=== PATIENT | male | born 1980 | race Caucasian/White ===

== ENCOUNTER 2020-04-13 21:16 | Emergency (ER) | payer BC ==
[~2020-04-13] VITALS: Ht 182.9 cm; Wt 120.2 kg
--- NOTE | 2020-04-13 21:32 | NUR ---
TAMIKO CAME TO ER BED 1 BIB RA FROM HOME C/O "HEART BEATING REALLY FAST". PATIENT STATES THAT HE DID SOME LIGHT EXERCISE LONG BEFORE HIS PALPITATIONS OCCURRED. PATIENT ALSO STATES THAT HE HAD A SMALL PIECE OF MARIJUANA COOKIES. PATIENT CURRENTLY DOES NOT HAVE ANY PAIN OR ANY COMPLAINTS. AAOX4. NO SOB. BREATHING EVENLY AND UNLABORED ON ROOM AIR. CONNECTED TO MONITOR.
--- NOTE | 2020-04-13 21:34 | NUR ---
TIAGO HEARD AT BEDSIDE.
--- NOTE | 2020-04-13 21:49 | NUR ---
BLOOD DRAWN, SENT TO LAB.
[2020-04-13 21:53] LABS: BASOPHILS % (AUTO) 0.5 % (0.0-2.0); HEMATOCRIT 39 % (39-51); HEMOGLOBIN 13.5 g/dL (13.5-17.5); LYMPHOCYTES % (AUTO) 20.7 % (20.0-44.0); MEAN CORPUSCULAR HGB CONC 34 g/dl (31.0-36.0); MEAN CORPUSCULAR VOLUME 88 fL (80-96); MONOCYTES # (AUTO) 0.7 /CMM (0.1-1.30); NEUTROPHILS # (AUTO) 6.8 /CMM (1.8-8.9); NEUTROPHILS % (AUTO) 69.8 % (43.0-81.0); PLATELET COUNT (AUTO) 310 /CMM (150-450); RED BLOOD CELL COUNT(AUTO) 4.47 MIL/uL (4.5-6.0); WHITE BLOOD COUNT (AUTO) 9.8 K/uL (4.3-11.0)
[2020-04-13 22:02] LABS: CALCIUM, SERUM 9.1 mg/dL (8.5-10.1); CARBON DIOXIDE 28 mmol/L (21-32); CHLORIDE 97 mmol/L (98-107); CREATININE 0.9 mg/dL (0.6-1.3); GLUCOSE 110 mg/dL (74-106); SODIUM SERUM 133 mmol/L (136-145); UREA NITROGEN, BLOOD 6 mg/dL (7-18)
[2020-04-13 22:04] LABS: POTASSIUM 2.6 mmol/L (3.5-5.1)
[2020-04-13] MEDS ORDERED: POTASSIUM CHLORIDE 20 MEQ TAB.PRT.SR PO ONE ×2 (22:11→22:30)
--- NOTE | 2020-04-13 22:48 | NUR ---
IV removed. Catheter intact and site benign. Pressure and 4x4 applied to site. No bleeding noted.
--- NOTE | 2020-04-13 22:48 | NUR ---
Patient discharged to home in stable condition. Written and verbal after care instructions given. Patient verbalizes understanding of instruction.
[2020-04-13 22:49] VITALS: BP 121/75
== END 2020-04-13 22:52 | disposition home or self-care (01) ==
LOC: ER 21:16
DX: R00.2 Palpitations (principal); E87.6 Hypokalemia; I10 Essential (primary) hypertension; E11.9 Type 2 diabetes mellitus without complications; I25.10 Atherosclerotic heart disease of native coronary artery without angina pectoris; J45.909 Unspecified asthma, uncomplicated; Z60.2 Problems related to living alone; Z88.8 Allergy status to other drugs, medicaments and biological substances
CPT/HCPCS: 36415; 71045-TC; 80048-TC; 84484-TC; 85025-TC; 85378-TC